=== PATIENT | female | born 1985 | race Caucasian/White ===

== ENCOUNTER 2016-12-03 19:29 | Emergency (ER) | payer SELFPAY ==
[~2016-12-03] VITALS: Ht 160 cm; Wt 55.0 kg
[2016-12-03 19:32] VITALS: BP 130/82; PULSE 120; TEMP 98.4; O2SAT 99
[2016-12-03] MEDS ORDERED: SODIUM CHLOR 0.9% 1000 ML INJ 1,000 ML IV ONE (20:15)
[2016-12-03] MEDS ORDERED: VANCOMYCIN INJ 1,000 MG in SODIUM CHLOR 0.9% 250 ML INJ 250 ML IV STA (20:15)
[2016-12-03] MEDS ORDERED: PIPERACIL-TAZO 4.5 GM PREMIX 100 ML IV STA (20:15)
[2016-12-03] MEDS ORDERED: SODIUM CHLOR 0.9% 1000 ML INJ 800 ML IV ONE (20:15)
--- NOTE | 2016-12-03 20:15 | PD ---
HPI Chief Complaint: Skin Problem Time Seen by Provider: 20:05 Travel History International Travel<30 days: No Contact w/Intl Traveler<30days: No Traveled to known affect area: No History of Present Illness HPI 31-year-old female came to the emergency room with history of left arm swelling for past 24 hours. Patient says that she shot cocaine on that left arm 2 days ago. She is not sure whether it was injected in the vein or actually the muscle because one of her friends did it for her. She says it was towards the end of the injection it started to burn. Since then she has noticed a swelling in the muscle belly and it has been very painful. Today she was at work when the pain got worse. She was unable to extend that arm. Her boss let her go home and asked her to go to the emergency room. Patient was afebrile in the emergency room. However she said she took NyQuil this afternoon after she came back from work. Patient has been a recovering addict up until 2 days ago when she used cocaine. She was tachycardic in the triage. Patient was awake and answering questions appropriately. She did appear anxious. [facility] Past Medical History Narrative Medical List of her past medical, surgical, social and family history was reviewed from the nursing note. Medical History: Denies Significant Hx ?: Not LMP: 11/26/16 : 1 Para: 1 Past Surgical History Surgical History: No Previous Surgery Social History Alcohol Use: Yes (socially) Tobacco Use: Yes (1/ 2 ppd) Allergies-Medications (Allergen,Severity, Reaction): Coded Allergies: No Known Allergies (Unverified , 12/03/16) Comments No known drug allergies. Reported Meds & Prescriptions Reported Meds & Active Scripts Active Bactrim DS (Sulfamethoxazole-Trimethoprim) 800-160 Mg Tab 1 Tab PO BID 10 Days Narrative Medication List of her home medications were reviewed from the nursing note. Review of Systems Except as stated in HPI: all other systems reviewed are Neg Physical Exam Narrative GENERAL: Awake, alert, moderate distress, anxious SKIN: Warm and dry. Left bicipital area has a swelling that is firm 3 x 3 cm and tender to touch. The skin of the entire left upper extremity is covered in colorful tattoos. It is hard to assess if there is extensive erythema. The skin is warm to touch. HEAD: Atraumatic. Normocephalic. EYES: Pupils equal and round. No scleral icterus. No injection or drainage. ENT: No nasal bleeding or discharge. Dry mucous membrane, halitosis NECK: Trachea midline. No JVD. CARDIOVASCULAR: Regular rate and rhythm. Tachycardia. No murmur appreciated. RESPIRATORY: No accessory muscle use. Clear to auscultation. Breath sounds equal bilaterally. GASTROINTESTINAL: Abdomen soft, non-tender, nondistended. Hepatic and splenic margins not palpable. MUSCULOSKELETAL: No obvious deformities. No clubbing. No cyanosis. No edema. NEUROLOGICAL: Awake and alert. No obvious cranial nerve deficits. Motor grossly within normal limits. Normal speech. PSYCHIATRIC: Appropriate mood and affect; insight and judgment normal. Data Data Last Documented VS Vital Signs Date Time Temp Pulse Resp B/P Pulse Ox O2 Delivery O2 Flow Rate FiO2 12/04/16 00:41 99 Nasal Cannula 2 12/03/16 19:32 98.4 120 130/82 Orders Complete Blood Count With Diff (12/03/16 20:15) Comprehensive Metabolic Panel (12/03/16 20:15) Lactic Acid Sepsis Protocol (12/03/16 20:15) Urinalysis - C+S If Indicated (12/03/16 20:15) Blood Culture (12/03/16 20:15) Blood Glucose (12/03/16 20:15) Ecg Monitoring (12/03/16 20:15) Iv Access Insert/Monitor (12/03/16 20:15) Oximetry (12/03/16 20:15) Oxygen Administration (12/03/16 20:15) Piperacil-Tazo 4.5 Gm Premix (Zosyn 4.5 (12/03/16 20:15) Vancomycin Inj (Vancomycin Inj) (12/03/16 20:15) Sodium Chlor 0.9% 1000 Ml Inj (Ns 1000 M (12/03/16 20:15) Sodium Chlor 0.9% 1000 Ml Inj (Ns 1000 M (12/03/16 20:15) Ed Poc Ultrasound (12/03/16 ) Labs Laboratory Tests Test 12/03/16 12/03/16 20:25 22:30 White Blood Count 6.6 TH/MM3 Red Blood Count 4.33 MIL/MM3 Hemoglobin 13.8 GM/DL Hematocrit 38.8 % Mean Corpuscular Volume 89.6 FL Mean Corpuscular Hemoglobin 31.9 PG Mean Corpuscular Hemoglobin 35.5 % Concent Red Cell Distribution Width 12.7 % Platelet Count 158 TH/MM3 Mean Platelet Volume 10.8 FL Neutrophils (%) (Auto) % Lymphocytes (%) (Auto) % Monocytes (%) (Auto) % Eosinophils (%) (Auto) % Basophils (%) (Auto) % Neutrophils # (Auto) TH/MM3 Lymphocytes # (Auto) TH/MM3 Monocytes # (Auto) TH/MM3 Eosinophils # (Auto) TH/MM3 Basophils # (Auto) TH/MM3 CBC Comment AUTO DIFF Differential Total Cells 100 Counted Neutrophils % (Manual) 53 % Band Neutrophils % 7 % Lymphocytes % 33 % Monocytes % 6 % Eosinophils % 1 % Neutrophils # (Manual) 4.0 TH/MM3 Differential Comment FINAL DIFF MANUAL Platelet Estimate LOW Platelet Morphology Comment NORMAL Red Cell Morphology Comment NORMAL Sodium Level 133 MEQ/L Potassium Level 3.7 MEQ/L Chloride Level 96 MEQ/L Carbon Dioxide Level 25.3 MEQ/L Anion Gap 12 MEQ/L Blood Urea Nitrogen 6 MG/DL Creatinine 0.66 MG/DL Estimat Glomerular Filtration 106 ML/MIN Rate Random Glucose 96 MG/DL Lactic Acid Level 0.6 mmol/L Calcium Level 8.6 MG/DL Total Bilirubin 0.4 MG/DL Aspartate Amino Transf 24 U/L (AST/SGOT) Alanine Aminotransferase 25 U/L (ALT/SGPT) Alkaline Phosphatase 71 U/L Total Protein 7.7 GM/DL Albumin 3.7 GM/DL Urine Color LIGHT-YELLOW Urine Turbidity CLEAR Urine pH 6.5 Urine Specific Central 1.005 Urine Protein NEG mg/dL Urine Glucose (UA) NEG mg/dL Urine Ketones 10 mg/dL Urine Occult Blood NEG Urine Nitrite NEG Urine Bilirubin NEG Urine Urobilinogen LESS THAN 2.0 MG/DL Urine Leukocyte Esterase NEG Urine RBC LESS THAN 1 /hpf Urine WBC LESS THAN 1 /hpf Urine Squamous Epithelial 2 /hpf Cells Urine Hyaline Casts 1 /lpf Microscopic Urinalysis Comment CATH-CULT NOT IND MDM Medical Decision Making Medical Screen Exam Complete: Yes Emergency Medical Condition: Yes Medical Record Reviewed: Yes Differential Diagnosis Sepsis, cellulitis, abscess Narrative Course 10:17 PM patient was started on IV antibiotics and fluid as per sepsis protocol given her tachycardia. She was given IV Zosyn and vancomycin. However blood test results came back and WBC count is within normal limits. Lactic acid is negative. Based on my bedside ultrasound and lack of any fluid collection I'm comfortable sending her home on by mouth antibiotics. She will go home with instructions. Patient has requested for some cheap antibiotics since she does not have insurance and will have to be out of pocket. Procedures Procedure Narrative Ultrasound evaluation to rule out abscess: Linear probe was used to check for the abscess on the swelling. No underlying fluid collection was noticed. The swelling appeared to be the muscle belly probably inflamed. Patient tolerated the procedure well. EKG Prior to Arrival: No Diagnosis Primary Impression: Muscle inflammation due to drug Additional Impressions: Cocaine abuse Cellulitis Qualified Code: L03.114 - Cellulitis of left upper extremity Referrals: Primary Care Physician 3 days Additional Instructions: Please return to the ER if the condition worsens or any other new concerns. Otherwise follow-up with your primary care. Take the antibiotic as per the prescription direction. Apply warm alternating with cold compress over the swelling. Take Motrin/ibuprofen/Advil for pain and inflammation. Med/Other Pt SpecificInfo: Prescription(s) given Scripts Sulfamethoxazole-Trimethoprim (Bactrim DS)800-160 Mg Tab1 Tab PO BID 10 Days Ref 0 Prov:Alex Caban MD 12/03/16 Disposition: 01 DISCHARGE HOME Condition: Stable Alex Caban MD Dec 03, 2016 20:15
[2016-12-03 20:46] LABS: HEMATOCRIT 38.8 % (35.0-46.0); MEAN CELL VOLUME 89.6 FL (80.0-100.0); MEAN CORPUSCULAR HEMOGLOBIN 31.9 PG (27.0-34.0); MEAN CORPUSCULAR HGB CONC 35.5 % (32.0-36.0); PLATELET COUNT 158 TH/MM3 (150-450); RED BLOOD COUNT 4.33 MIL/MM3 (4.00-5.30); RED CELL DISTRIBUTION WIDTH 12.7 % (11.6-17.2); WHITE BLOOD COUNT 6.6 TH/MM3 (4.0-11.0)
[2016-12-03 20:51] LABS: HEMO FLAGS AUTO DIFF
[2016-12-03 21:06] LABS: ANION GAP 12 MEQ/L (5-15); AST (GOT) 24 U/L (15-37); BICARBONATE 25.3 MEQ/L (21.0-32.0); BLOOD UREA NITROGEN 6 MG/DL (7-18); CHLORIDE 96 MEQ/L (98-107); GLOMERULAR FILTRATION RATE 106 ML/MIN (>89); POTASSIUM 3.7 MEQ/L (3.5-5.1); SODIUM (NA) 133 MEQ/L (136-145)
[2016-12-03 21:10] LABS: ALKALINE PHOSPHATASE 71 U/L (45-117); ALT (GPT) 25 U/L (10-53); TOTAL BILIRUBIN ADULT 0.4 MG/DL (0.2-1.0)
[2016-12-03 21:25] LABS: BANDS 7 % (0-6); EOSINOPHILS 1 % (0-4); POLYS (SEG NEUTROPHILS) 53 % (16-70); WBC DIFF SAMPLE 100
[2016-12-03 21:26] LABS: PLATELET ESTIMATE SMEAR LOW (NORMAL); PLATELET MORPHOLOGY NORMAL (NORMAL); SCAN/DIFF FINAL DIFF MANUAL
[2016-12-03] MEDS ORDERED: BACT800T5 PO (22:07)
[2016-12-03 23:04] LABS: BLOOD, URINE NEG (NEG); GLUCOSE,URINE NEG (NEG); HYALINE CAST, URINE 1 /lpf (RARE); KETONE, URINE 10 mg/dL (NEG); NITRITE,URINE NEG (NEG); PH, URINE 6.5 (5.0-8.5); SQUAMOUS EPITHELIAL CELL URINE 2 /hpf (0-5); URINE COLOR LIGHT-YELLOW (YELLW/STRAW)
[2016-12-03 23:07] LABS: COMMENT (UR) CATH-CULT NOT IND; CULTURE IF INDICATED CATH CULTURE NOT IND
[2016-12-04 00:41] VITALS: O2SAT 97
== END 2016-12-04 00:42 | disposition home or self-care (01) ==
LOC: NEPC 19:29
DX: M60.822 Other myositis, left upper arm (principal); L03.113 Cellulitis of right upper limb; F14.10 Cocaine abuse, uncomplicated; F17.210 Nicotine dependence, cigarettes, uncomplicated
CPT/HCPCS: 80053; 81001; 83605; 85007; 85027; 87040; 96365; 96366; 96367; 99284; J2543; J3370; J7030; J7050